=== PATIENT | female | born 1930 | race Caucasian/White ===

== ENCOUNTER → 2018-02-10 | Day surgery (SDC) | payer OTHER, BC, MEDICARE ==
[~2018-02-10] VITALS: Ht 152.4 cm; Wt 64.9 kg
[~2018-02-10] MED LIST: AMLODIPINE BESYL5 M1 PO; ASPIRIN81 M4 PO; BISACODYL5 M1 PO; BISOPROLOL FUMAR5 M1 PO; BISOPROLOL-HCT1 EAC2 PO; CALCIUM CIT-VI1 EAC1 PO; DOCUSATE SODIU100 M3 PO; FERROUS SULFAT325 M2 PO; FERROUS SULFAT325 M3 PO; FISH OIL 1,2001 EAC2 PO; FOLIC ACID0.4 M1 PO; LIDODERM1 EACH EXT; LOVENOX80 MG/0.1 SC; MIRALAX119 GM PO; MOBIC15 M1 PO; MULTIVITAMINS1 EAC9 PO; NEXIUM 24HR20 M2 PO; PERCOCET 5-3251 EACH PO; SENNA-TIME S T1 EACH PO
--- NOTE | 2018-02-10 09:48 | RADIOLOGY REPORT ---
EXAMINATION: FLUOROSCOPY OR, INTRAOPERATIVE CHOLANGIOGRAM CLINICAL INFORMATION: Cholangiogram in OR COMPARISON: None TECHNIQUE: Cholangiogram was performed by Dr. Tiwari. Fluoroscopy time 23.3 seconds. Cumulative dose 867.3 mrad. FINDINGS: 3 cholangiograms performed. There is runoff of contrast into the duodenum. No fixed filling defect. No leak from the cystic duct stump. IMPRESSION: No leak from the cystic duct stump. No fixed filling defect in the common bile duct to suggest biliary stone. Telephone report called to operating room to Dr. Tiwari 9:43 AM 02/10/2018.
--- NOTE | 2018-02-10 10:00 | Operative Report ---
Operative/Inv Procedure Report Surgery Date: 02/10/18 Name of Procedure: Laparoscopic cholecystectomy with intraoperative cystic duct cholangiogram Pre-Operative Diagnosis: Chronic cholecystitis and cholelithiasis Post-Operative Diagnosis: Same Estimated Blood Loss: scant Surgeon/Fire Equipment Inspector: Karie STRONG,Luis AGUILERA Anesthesia: general endotracheal tube Specimens: Gallbladder Complications: None Operative/Procedure Note Note: The patient was placed on the operating table in the supine position. A surgical timeout was taken. The patient was placed under general anesthesia and the abdomen was prepped and draped in the usual sterile manner. The patient was placed in Trendelenburg position and a supraumbilical transverse incision was made. The fascia was identified and held up with a sharp towel clip. A Veress needle was introduced into the peritoneal cavity. After adequate pneumoperitoneum was established the Veress needle was removed and replaced with an 11 mm trocar. The 10 mm laparoscope was introduced into the peritoneal cavity. Other than a distended gallbladder no gross intra-abdominal findings were noted on laparoscopic exam. The patient was then placed in reverse Trendelenburg position. The right upper quadrant 5 mm ports and the upper midline 11 mm port were all placed under direct laparoscopic visualization. The gallbladder was then grasped on the fundic and ampullary areas and held under tension. Blunt dissection in the ampullary area revealed the cystic duct and the cystic artery. A clip was placed on the gallbladder side the cystic duct and an incision was made in the cystic duct. A cholangiogram catheter was threaded into the cystic duct and the balloon was inflated. A cystic duct cholangiogram was obtained which showed good flow into the common bile duct and hepatic radicles. There was good flow into the duodenum also. No filling defects were noted. The cholangiogram catheter was then removed and 2 clips were placed on the patient's side of the incision in the cystic duct and the cystic duct was transected. The cystic artery was double clipped on the patient 's side and single clipped on the gallbladder side and transected. A posterior cystic artery was identified clipped and transected. The gallbladder was then dissected from the hepatic bed using the electrocautery device. Hemostasis was maintained with the electrocautery device. The gallbladder was eventually totally amputated from the hepatic bed using the electrocautery device. The hepatic bed area and the area of the clips were inspected and hemostasis was noted to be good, no bile leakage was noted and no foreign bodies were noted. The laparoscope was moved to the upper midline port. A specimen retrieval bag was brought in through the supraumbilical incision. The gallbladder was placed in the bag and pulled out through the supraumbilical incision. Right upper quadrant was then reinspected and it was irrigated and suctioned dry. Again hemostasis was noted to be good, no bile leakage was noted and no foreign bodies were noted. All port sites were inspected on the peritoneal surfaces and hemostasis was noted to be good. All ports were then removed and the abdomen was allowed to desufflate. The supra umbilical fascial incision was closed with a [id number] heavy Vicryl suture. Subcutaneous tissue was closed with 3-0 Vicryl sutures. All skin incisions were closed with 5-0 Vicryl subcuticular closure. Steri-Strips and Band-Aids were applied. The patient tolerated the procedure well and was taken to the recovery room with stable vital signs. Findings: Normal cystic duct cholangiogram with good flow into the common duct, hepatic radicles and into the duodenum and no filling defects Discharge Disposition: PACU
== END ==
LOC: SDA 03:01 → STS 03:01 → EDSTATUS 07:00 → STS 07:00 → SDA 07:00
DX: K80.10 Calculus of gallbladder with chronic cholecystitis without obstruction (principal); I10 Essential (primary) hypertension; I70.0 Atherosclerosis of aorta
CPT/HCPCS: SDA; 76000; 88304; J0131; J2405; J3490